=== PATIENT | male | born 1995 | race Caucasian/White ===

== ENCOUNTER 2023-02-18 10:45 | Inpatient (IN) | payer OTHER ==
[~2023-02-18] VITALS: Ht 182.9 cm; Wt 84.8 kg
[2023-02-18] MEDS ORDERED: DIAZEPAM 5 MG TABLET PO ONE (11:45)
[2023-02-18] MEDS ORDERED: LIDOCAINE 5% PATCH TOP SCH (11:45)
[2023-02-18] MEDS ORDERED: KETOROLAC 60MG/2ML VIAL IM ONE (11:45)
[2023-02-18] MEDS ORDERED: DIAZEPAM 5 MG TABLET PO NR (15:45)
[2023-02-18] MEDS ORDERED: KETOROLAC 60MG/2ML VIAL IM NR (15:45)
[2023-02-18] MEDS ORDERED: HYDROCODONE/ACETAMINOPHEN 5/325MG TABLET PO ONE (18:00)
[2023-02-18] MEDS ORDERED: HYDR-4001 MT (20:40)
[2023-02-18] MEDS ORDERED: IBUP-2029 MT (20:40)
[2023-02-18] MEDS ORDERED: LIDO700A15 TP (20:40)
[2023-02-18] MEDS ORDERED: CLONIDINE 0.1MG TABLET PO PRN (23:30)
[2023-02-18] MEDS ORDERED: ACETAMINOPHEN 325MG TABLET PO PRN (23:30)
[2023-02-18] MEDS ORDERED: GUAIFENESIN 200MG/10ML SUGAR FREE UDC PO PRN (23:30)
[2023-02-18] MEDS ORDERED: IPRATROPIUM/ALBUTEROL 0.5-3(2.5)MG/3ML NEB HHN PRN (23:30)
[2023-02-18] MEDS ORDERED: DOCUSATE SODIUM 100MG CAPSULE PO PRN (23:30)
[2023-02-18] MEDS ORDERED: IBUPROFEN 600MG TABLET PO PRN (23:30)
[2023-02-18] MEDS ORDERED: MAGNESIUM/ALUMINUM HYDROXIDE/SIMETHICONE 30ML UDC PO PRN (23:30)
[2023-02-18] MEDS ORDERED: ONDANSETRON HCL 4MG/2ML INJ IV PRN (23:30)
[2023-02-18] MEDS ORDERED: NALOXONE HCL 0.4MG/ML VIAL IV PRN (23:45)
[2023-02-19] MEDS: HYDROCODONE/ACETAMINOPHEN 5/325MG TABLET PO PRN ×3 (01:26→20:20)
[2023-02-19 02:48] VITALS: BP 125/80
[2023-02-19 08:00] VITALS: BP 122/80
[2023-02-19 10:13] LABS: CHLORIDE 108 mEq/L (98-107)
[2023-02-19 10:16] LABS: BASOPHILS % 1.1 % (0.0-2.0); EOSINOPHILS % 1.1 % (0.0-5.0); HEMATOCRIT. 44.2 % (42.0-52.0); HEMOGLOBIN. 15.3 g/dL (14.0-18.0); LYMPHOCYTES % 26.6 % (20.0-50.0); MEAN CORPUSCULAR HEMOGLOBIN 33.7 pg (28.0-32.0); MEAN CORPUSCULAR VOLUME 97.3 fL (80.0-94.0); MEAN PLATELET VOLUME 9.4 fl (7.4-10.4); MONOCYTES % 11.6 % (2.0-8.0); NEUTROPHILS % 59.6 % (40.0-76.0); PLATELET 216 x1000/uL (130-400); RED BLOOD CELL COUNT 4.54 mill/uL (4.7-6.1); RED CELL DISTRIBUTION WIDTH 13.9 % (11.6-14.6)
[2023-02-19 10:22] LABS: CREATINE KINASE 105 IU/L (39-308)
[2023-02-19] MEDS: FAMOTIDINE 20MG TABLET PO SCH ×2 (11:00→20:20)
[2023-02-19 12:00] VITALS: BP 128/80
[2023-02-19 16:00] VITALS: BP 137/74
[2023-02-20] MEDS: FAMOTIDINE 20MG TABLET PO SCH (09:41)
[2023-02-20] MEDS: HYDROCODONE/ACETAMINOPHEN 5/325MG TABLET PO PRN (09:43)
[2023-02-20 12:27] VITALS: BP 120/81
== END 2023-02-20 12:57 | disposition home or self-care (01) | DRG 552 ==
LOC: ER 10:45 → MICUSO 23:30 → SUPCPDRO 23:44 → 6EST 02-19 02:32
PROVIDERS: ADMIT Internal Medicine; ATTEND Internal Medicine
DX: S32.018A Other fracture of first lumbar vertebra, initial encounter for closed fracture (principal); X58.XXXA Exposure to other specified factors, initial encounter
CPT/HCPCS: 36415; 72131; 72148; 80053; 82550; 85025; 97162; 99285; J1885